=== PATIENT | male | born 1930 | race Caucasian/White ===

== ENCOUNTER 2018-04-15 12:25 | Outpatient (CLI) | payer MEDICARE ==
--- NOTE | 2018-04-16 08:52 | MRI ---
MRI LUMBAR SPINE: Date: 04-15-18 Provided Clinical History: Lumbar radiculopathy. FINDINGS: Five non-rib bearing lumbar type vertebral bodies are demonstrated on radiographs of 02-25-18. There i s mild anterolisthesis of L3 on L4. Lumbar alignment appears otherwise normal. Vertebral body heights are preserved. No focal concerning regional marrow signal abnormality. Hemangioma formation is consp icuous on L3. The conus medullaris is normal in signal and terminates at an appropriate level. The vi sualized extraspinal soft tissues appear unremarkable. L1-2: There is a broad based disc bulge and bilateral facet arthritis. There is no significant centra l canal stenosis apparent. There is mild left foraminal narrowing with disc osteophyte complex produc ing mass effect upon the L1 nerve root in its lateral region. L2-3: There is a broad based disc bulge and bilateral facet arthritis. There is mild central canal st enosis. There is mild to moderate right foraminal narrowing. No significant left foraminal narrowing. L3-4: There is a broad based disc bulge and advanced bilateral facet arthritis. There is severe centr al canal stenosis. There is moderate to severe right foraminal narrowing. L4-5: There is a broad based disc bulge and bilateral facet arthritis. There is mild left foraminal n arrowing. There is mild central canal narrowing. There is no significant right foraminal narrowing. L5-S1: There is a broad based disc bulge and bilateral facet arthritis. There is eccentricity of the disc bulge in the left far lateral region producing mass effect upon the exiting L5 nerve root. No si gnificant central canal stenosis. There is severe left foraminal narrowing. No significant right fora liana narrowing. IMPRESSION: Advanced multilevel lumbar disc and facet degenerative changes producing areas of canal and foraminal narrowing up to severe in degree. POS: [facility]
== END 2018-04-15 12:26 | disposition home or self-care (01) ==
LOC: BICMRI 12:25
PROVIDERS: ATTEND Specialist
DX: M51.16 Intervertebral disc disorders with radiculopathy, lumbar region (principal); M99.83 Other biomechanical lesions of lumbar region; M48.061 Spinal stenosis, lumbar region without neurogenic claudication; M47.27 Other spondylosis with radiculopathy, lumbosacral region; M47.26 Other spondylosis with radiculopathy, lumbar region
CPT/HCPCS: 72148